=== PATIENT | female | born 2000 | race Caucasian/White ===

== ENCOUNTER 2022-01-31 08:43 | Inpatient (IN) | payer OTHER, SELFPAY ==
[2022-01-31] VITALS (11 sets, daily range): BP systolic 117–214; BP diastolic 66–117; PULSE 57–104; RESP 12–18; TEMP 36.1–36.8; O2SAT 96–100; BMI 65.0
[2022-01-31] MEDS: Lidocaine 1% Pres-Free 30 ML VIAL IJ (09:14)
[2022-01-31] MEDS: Oxytocin 10 UNITS/ML VIAL IM (09:14)
[2022-01-31] MEDS: Normal Saline Flush 10 ML SYR IVP (09:50)
--- NOTE | 2022-01-31 10:04 | ANES.PREOP_ITS ---
General Info Date of Service Date Performed: 01/31/22 Height: 5 ft 5.5 in Weight: 180 kg Body Mass Index (BMI): 65.0 Surgical Procedure: Operation Date: 01/31/22 10:10 Proposed Procedure Side Surgeon p Vaginal Laceration Repair Ginger Caruso DO Actual Procedure Side Surgeon p Vaginal Laceration Repair Left Ginger Caruso DO Meds Allergies and Home Medications Allergies Allergy/AdvReac Type Severity Reaction Status Date / Time clavulanic acid Allergy Unverified 01/31/22 08:49 [From Augmentin] amoxicillin [From Augmentin] AdvReac Intermediate Other (See Unverified 01/31/22 08:58 Comment) ciprofloxacin AdvReac Intermediate Other (See Unverified 01/31/22 08:58 Comment) Home Medication Medication Instructions Recorded levalbuterol tartrate 45 45 mcg inhalation PRN PRN 01/31/22 mcg/actuation aerosol inhaler (Xopenex HFA) ondansetron 4 mg disintegrating 4 mg PO DAILY PRN PRN Nausea And 01/31/22 tablet Vomiting Current Visit Medications: Current Medications Generic Name Dose Route Start Last Admin Trade Name Freq PRN Reason Stop Dose Admin Penicillin G Potassium 3,000, 50 mls @ 100 mls/hr 01/31/22 09:00 000 units/ Sodium Chloride IVPB Q4H ZEFERINO Sodium Chloride 500 mls @ 0 mls/hr 01/31/22 08:46 Saline 500ml Bag IV PRN PRN As Directed IV Miscellaneous Supplies 1 each 01/31/22 08:45 Iv Access IV DIRECTED ZEFERINO IV Miscellaneous Supplies 1 each 01/31/22 09:00 Iv Access IV DIRECTED ZEFERINO Sodium Chloride 0 ml 01/31/22 08:46 Normal Saline Flush 10 Ml Syr IVP PRN PRN PFSH Tobacco Smoking/Tobacco Use Status: Never Prental History History 1 Para 0 Hx # Term Pregnancies Multiple births Hx # Pregnancies Ectopic pregnancies AB induced Hx Number of Living Children AB spontaneous Vital Signs and Lab Results Vital Signs Most Recent Vital Signs in EMR: Most Recent Vital Signs Pulse BP 81 143/91 H 01/31/22 09:59 01/31/22 09:59 Lab Results Result Diagrams: 01/31/22 08:43 Blood Type / Crossmatch: Patient ABO/Rh Pending 01/31/22 Complete Blood Count: White Blood Count Pending 01/31/22 08:43 Red Blood Count Pending 01/31/22 08:43 Hemoglobin Pending 01/31/22 08:43 Hematocrit Pending 01/31/22 08:43 Platelet Count Pending 01/31/22 08:43 Complete Metabolic Panel: No Data to Display Liver Function Panel: No Data to Display Coagulation Panel: No Data to Display Cardiac Panel: No Data to Display Arterial Blood Gas: No Data to Display Venous Blood Gas: No Data to Display Pancreas Panel: No Data to Display Thyroid Panel: No Data to Display Infectious Disease: No Data to Display Blood Cultures: No Data to Display Toxicology Panel: No Data to Display Panel: No Data to Display Anesthesia Assessment and Plan Anesthesia History Personal History: No History of Anesthesia Complications Family History: No Family History of Anesthesia Complications Exercise Tolerance Exercise Tolerance: Metabolic Equivalents>4 Cardiac & Pulmonary Exam Cardiac Exam: Normal S1/S2 Heart Sounds Pulmonary Exam: Clear Bilateral Breath Sounds Implantable Cardiac Device Does patient have a Pacemaker or an ICD?: No Airway Exam Known Difficult Airway: No Mallampati Class: 2 Mouth Opening: Normal (> 3cm) Thyromental Distance: Greater than 3 cm Neck Range of Motion: Full ROM Neck Circumference: Normal Teeth Condition: Normal Dentition ASA Classification ASA Score: ASA 2 Emergency Case?: Yes NPO Status NPO Status: Full Stomach Status Status: Not Relevant due to Medical History Anesthesia Plan Resuscitation Status: Full Code Anesthesia Technique: General Anesthesia Airway Planned: Endotracheal Tube Monitors Used: Standard Monitors Preoperative Comments:: 21 yo female just delivered with large perineal lacer ation - to OR. Denies major medical history. Previous Anes: mac 3 grade 1, easy mask.
[2022-01-31 10:14] LABS: HCT 34.6 % (36.0-46.0); HGB 12.1 g/dL (11.2-15.7); MCH 31.8 pg (27.0-33.0); MCV 91 fL (80-95); MPV 10.8 fL (8.0-11.0); Platelet Count 222 10^3/uL (130-400); RDW-SD 40.2 fL
--- NOTE | 2022-01-31 10:14 | OBCE_ITS ---
Date of service: 01/31/22 Time of Service: 10:14 Assessment and Plan Assessment and plan (1) High vaginal laceration during delivery: Status: Acute Assessment and plan: Patient has a large vaginal sidewall laceration which will require repair in the operating room. Full informed consent was obtained from procedure. She will be taken to the operating suite shortly. Anesthesia in OR crew notified. All questions answered. History of Present Illness History of Present Illness Chief Complaint: Post delivery vaginal laceration Narrative: Patient is a 21-year-old now G1, P1 who had care with the [facility]. She presented to the office today and was noted to be completely dilated. She was transported via ambulance with physician in at [facility] to the center. Shortly thereafter, she delivered by normal spontaneous vaginal delivery without anesthesia a viable infant. Placenta delivered spontaneously per attending physician. I was called to evaluate the patient in the immediate post delivery. Due to persistent ongoing vaginal bleeding and suspicion of a laceration. On my examination, there is noted to be a small first-degree perineal laceration, however with palpation there was noted to be a deep right vaginal sidewall laceration. Patient has significant discomfort and due to this fact the recommendation would be to be taken the operating room for surgical repair. Risk benefits and alternatives were discussed in full informed consent was obtained. Consults Consult date: 01/31/22 Requesting physician: Morenita Haynes Review of Systems Narrative: Patient having significant vaginal and rectal discomfort due to her delivery and laceration. Otherwise no notable findings PFSH All Active Problems (Updated 01/31/22 @ 10:17 by Ginger Caruso DO) High vaginal laceration during delivery (Acute) Social History Smoking/Tobacco Use Status: Never Smoking risk assessment performed?: Yes History History 1 Para 0 Hx # Term Pregnancies Multiple births Hx # Pregnancies Ectopic pregnancies AB induced Hx Number of Living Children AB spontaneous Exam Resp Effort & Inspection: normal respiratory effort, no audible wheezes and no cough Cardio Rate: regular rate GI Inspection: normal to inspection General: other (As per description in HPI) Results Last Vital Signs Pulse 73 01/31/22 10:11 BP 143/67 H 01/31/22 10:11 Labs Result diagrams: 01/31/22 10:05
--- NOTE | 2022-01-31 10:27 | W.PM.OBHPL1 ---
Date of service: 01/31/22 Time of Service: 08:00 Assessment and Plan Assessment and plan (1) Active labor at term: Status: Acute Assessment and plan: who presented in active labor, /-1 on arrival to the hospital. GBS positive unfortunately unable to give antibiotics before delivery. Anticipate . (2) Positive GBS test: Status: Acute OB-HPI Labor/Delivery History of Present Illness Reason for Visit: Term Labor Chief Complaint: Uterine Contractions. TIANA Calculator Estimated Delivery Date Method Current WG Current Estimate 01/27/22 Ultrasound #1 40w 4d History of Present Expected Delivery Route/Plan Narrative: 21 yo who presented to the office this morning in active labor, found to be 9cm dilated with bulging membranes. Contractions every 2 minutes. FHR in the office was 120. Some bloody show but no ROM. Due to severe discomfort and possible imminent delivery, went via ambulance to hospital. Endorsing good movement. Fully dilated on arrival. history notable for GBS positive, did not receive antibiotics due to rapid delivery on presentation. Blood type A pos, antibodies neg. RI. 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 PFSH All Active Problems (Updated 01/31/22 @ 11:50 by Morenita Haynes) Active labor at term (Acute) Positive GBS test (Acute) High vaginal laceration during delivery (Acute) Social History Smoking/Tobacco Use Status: Never Smoking risk assessment performed?: Yes History History 1 Para 0 Hx # Term Pregnancies Multiple births Hx # Pregnancies Ectopic pregnancies AB induced Hx Number of Living Children AB spontaneous Meds Allergies and Home Medications Allergies Allergy/AdvReac Type Severity Reaction Status Date / Time clavulanic acid Allergy Unverified 01/31/22 08:49 [From Augmentin] amoxicillin [From Augmentin] AdvReac Intermediate Other (See Unverified 01/31/22 08:58 Comment) ciprofloxacin AdvReac Intermediate Other (See Unverified 01/31/22 08:58 Comment) Home Medications Medication Instructions Recorded Confirmed Type levalbuterol tartrate 45 45 mcg inhalation PRN PRN 01/31/22 History mcg/actuation aerosol inhaler (Xopenex HFA) ondansetron 4 mg disintegrating 4 mg PO DAILY PRN PRN Nausea And 06/16/22 History tablet Vomiting Exam Physical Exam Vital signs: Pulse BP 73 143/67 H 01/31/22 10:11 01/31/22 10:11 Vital Signs Reviewed: Yes Constitutional Constitutional: no acute distress Detailed Labor and Delivery Exam Dilation: 9 Effacement (%): 100 station: -1 Position: MARGARITA Cervix position: anterior Son Score: Cervical Points Exam 0 1 2 3 Dilation Closed 1-2cm 3-4 cm 5-6cm Effacement 0-30% 40-50% 60-70% 80% Consistency Firm Medium Soft Station -3 -2 -1,0 +1,+2 Position Posterior Mid Anterior Amniotic Membrane Status: Intact Contraction Frequency(min): 2 Fetus A Heart Rate Baseline: 120 Monitor Accelerations: Absent Monitor Decelerations: Early Variability: Moderate (6-25 BPM) Categories: Category I Respiratory Exam Respiratory Exam: Normal Cardiovascular Exam Cardiovascular Exam: Normal Abdominal Exam Abdominal Exam: Normal Results Results Group Beta Strep: Positive Blood Type: A+ Rubella Status: Immune Varicella Immunity: Not Tested Abnormal Lab Findings: Abnormal Labs 01/31/22 10:05 WBC 17.10 H RBC 3.80 L Hct 34.6 L Risk Assessment Risk for Shoulder Dystocia Increased Risk?: No Risk for Pre-Eclampsia Daily Dose ASA Indicated: No Risk for Post- Hemorrhage At Risk?: No Risks Reviewed Risks Reviewed Upon Admission: Yes
[2022-01-31] MEDS: Lactated Ringers 1,000 ML 30 ML IV (10:50)
[2022-01-31 11:20] LABS: Source Nasal/Nares
--- NOTE | 2022-01-31 11:23 | ROE_ITS ---
Date of service: 01/31/22 Time of Service: 11:23 Operative Note Operative Note DATE OF PROCEDURE: 01/31/22 PRE-OP DIAGNOSIS: Vaginal sidewall laceration POST-OP DIAGNOSIS: same (Laceration from the perineum, into the perirectal fossa. Vaginal mucosa intact) PROCEDURE: Repair of deep vaginal laceration SURGEON: Ginger Caruso ASSISTING SURGEON: Coco Goodwin EXPERIMENTAL DISPLAY BUILDER: Morenita Haynes ANESTHESIA TYPE: General LMA/ETT Refer to Anesthesia Record ESTIMATED BLOOD LOSS: 50 PATHOLOGY: none sent COMPLICATIONS: None Patient was transported to: PACU Patient's condition: stable Indications: Vaginal bleeding post normal spontaneous vaginal delivery with suspected vaginal sidewall laceration Findings: First-degree perineal laceration, first-degree left labial laceration, right labial laceration with extension into the perirectal fossa and avulsion of the vaginal mucosa Procedure Description: After full informed consent was obtained, patient was taken the operating suite with an IV running. She was placed in dorsal supine position and general anesthesia administered with ease. She was then placed in the modified dorsolithotomy position and prepped and draped in the usual sterile fashion in yellowfin stirrups. Shen catheter was inserted for continuous bladder drainage. On examination, systematically, cervix appears to be intact. Vaginal mucosa appears to be intact. There is a first-degree perineal laceration which is hemostatic and a first-degree left labial laceration which is also hemostatic. On the right-hand side there is a labial laceration which extends into the perirectal fossa and has evidence of avulsion of the vaginal mucosa on the right-hand side. With appropriate exposure and retraction, the deep space of the perirectal fossa was closed with 2-0 Monocryl suture. This area was noted to be hemostatic. Once the deep space tissues were closed, in a subcuticular fashion the tissue from the posterior fourchette extending up through the right labia minora was reapproximated. Upon inspection, there was no evidence of hematoma, or expansion of any pre-existing hematoma. Tissue was well reapproximated, and hemostasis had been achieved. Upon completion of the repair of the vaginal avulsion, the first-degree perineal and first-degree left labial lacerations were reapproximated as well. The patient was then returned to the dorsal supine position and awoke from anest hesia with ease. She was taken to recovery room in stable condition.
--- NOTE | 2022-01-31 11:51 | OBVDS_ITS ---
Date of service: 01/31/22 Time of Service: 09:30 OB Labor/ Delivery Information Baby A Delivery Delivery Method: Spontaneaous Presentation: Vertex Vertex Position: Left Occipital Anterior Cord Description-Baby A: 3 Vessels Amniotic Fluid: Meconium (thin) Estimated Blood Loss: 250 Delivery Outcome: Liveborn Infant Complications: none Note: 21 yo >1 who presented at 40w4d to the office in active labor. Transferred by ambulance to hospital given likelihood of imminent delivery as she was almost fully dilated on arrival to the office. heart rate 120-130 in the office. history notable for A pos, ab neg; GBS positive on urine culure in the third trimester; history of HSV1 pos genital culture, on acyclovir for the last 2 weeks. No current active lesions and no history of active lesions. Transfer to hospital went well, some bloody show, continued with strong contractions. Exam remained the same at 9/100/-1. On arrival to the hospital, she was placed on the monitor with Cat I FHT and contractions every 2 minutes. She quickly progressed to fully dilated +2 station with a bulging membrane and strong urge to push. AROM performed for thin meconium. She pushed efficiently to deliver a liveborn male through a loose nuchal cord. Shoulders delivered easily and spontaneously. FHT cat 1 throughout with early decelerations. Pitocin 10u IM was given after delivery of the infant. Fundus remained firm and placenta delivered spontaneously and found to be intact. Noted to have first degree bilateral labial lacerations and first degree perineal laceration that were hemostatic. However, there was ongoing mild bleeding and fundus was firm. Vagina explored and deep and high extension of the right labial laceration was found extending into the vagina. At this time, Dr. Caruso from OB was called who agreed with the assessment and preparations were made to transfer to the OR for repair under general anesthesia. See Dr. Caruso's consult note and operative report for further details. This provider did repair the left labial laceration and the perineal lacerations after the deep extension and the right labial lacerations were repaired by Dr. Caruso. EBL estimated at 250mL. Providers Doctor: Morenita Haynes [employer]: Morenita Haynes Nurse: King Colon Labor/Delivery Information Number of Babies in Womb: 1 Group Beta Strep: Positive Antibiotics Administered: No Rubella Status: Immune Blood Type: A+ Varicella Immunity: Not Tested Maternal Complications: Other (high vaginal laceration) Stages of Labor Onset of Labor Date: 01/31/22 Onset of Labor Time: 00:01 Complete Dilatation Date: 01/31/22 Complete Dilatation Time: 08:30 Labor - Stage 1 Duration: 0 minutes ROM Baby A: 01/31/22 ROM Baby A: 08:52 Infant Delivery Date-Baby A: 01/31/22 Infant Delivery Time-Baby A: 09:14 Labor Stage 2 Duration: 44 minutes Placenta Delivery Date-Baby A: 01/31/22 Placenta Delivery Time-Baby A: 09:26 Labor-Stage 3 Duration: 12 minutes Total Length of Labor-Baby A: 9 hours and 13 minutes Baby A Infant Gender: Male Gestational Status: Term (39-41.6 wks) weight: 3535 g Length-Baby A: 53.34 cm Head Circumference-Baby A: 35.56 cm Score-1 Minute Interval(Baby A) Heart Rate-1 minute: 100 BPM or Greater Respiratory Effort- 1 minute: Slow Respiration/Weak Cry Muscle Tone-1 minute: Active Movement Reflex Response-1 minute: Prompt Response Color-1 minute: Bluish Hands or Feet Score-5 Minute Interval(Baby A) Heart Rate- 5 minute: 100 BPM or Greater Respiratory Effort-5 minute: Spontaneous/Strong Cry Muscle Tone-5 minute: Active Movement Reflex Response-5 minute: Prompt Response Color-5 minute: Bluish Hands or Feet Interventions Repair of Laceration Type: Perineal (first) and Other (high vaginal laceration as extension of R labial laceration; L labial laceration 1st degree. See Operative note), Sponge Count Correct: Yes, Sharp Count Correct: Yes.
[2022-01-31 12:18] LABS: COVID-19 PCR Negative (Negative)
--- NOTE | 2022-01-31 12:47 | W.ANESPOSTOP ---
Postoperative Evaluation Date, Time and Location Date Performed: 01/31/22 Time Performed: 12:47 Patient Location: Obstetrics Vital Signs Most Recent Imported Vital Signs: Most Recent Vital Signs Temp Pulse Resp BP Pulse Ox 36.1 C L 99 H 16 128/85 96 01/31/22 11:49 01/31/22 11:49 01/31/22 11:49 01/31/22 11:49 01/31/22 11:49 Pain Score Most Recent Pain Score: Most Recent Pain Score Pain Level 0 01/31/22 11:49 Assessment Mental Status: Awake (Alert & Oriented to Patient Baseline) Airway and Respiratory Function: Patent airway with normal (patient baseline) respiratory exam Cardiovascular Function: Hemodynamically Stable Hydration Status: Adequately Hydrated Nausea & Vomiting: No Nausea or Vomiting Pain: Pain is tolerable per patient Peripheral Nerve Block: Patient did not receive a nerve block
[2022-01-31] MEDS: Ibuprofen 600 MG TAB PO (16:15)
[2022-01-31] MEDS: Acetaminophen 325 MG TAB 650 MG PO ×2 (17:21→23:42)
[2022-01-31] MEDS: Hamamelis Leaf/Glycerin 100 EACH BOX PR (17:23)
[2022-02-01 06:43] LABS: HCT 29.4 % (36.0-46.0); HGB 10.4 g/dL (11.2-15.7); MCH 32.5 pg (27.0-33.0); MCHC 35.4 % (32.0-36.0); MCV 92 fL (80-95); MPV 10.4 fL (8.0-11.0); Platelet Count 211 10^3/uL (130-400); RDW 12.3 % (11.7-14.6); RDW-SD 41.2 fL; WBC 16.19 10^3/uL (4.4-10.8)
--- NOTE | 2022-02-01 07:34 | W.PM.OBPNV1 ---
Date of service: 02/01/22 Time of Service: 07:34 Assessment and Plan Assessment and plan (1) Active labor at term: Status: Acute Assessment and plan: who presented in active labor, /-1 on arrival to the hospital. GBS positive unfortunately unable to give antibiotics before delivery. Anticipate . (2) Positive GBS test: Status: Acute Exam Physical Exam Vital signs: Temp Pulse Resp BP Pulse Ox 36.8 C 64 18 132/79 96 01/31/22 19:34 01/31/22 19:34 01/31/22 19:34 01/31/22 19:34 01/31/22 19:34 Narrative: Doing well. Slept some, doing all own self care. Initial effort off to good start. Expected dec in lochia, no abd pain, expected uterine cramps. No fever, dizzy. Perineal discomfort dec with ice and oral pain meds O: alert, smiling, comfortable abd - firm ut @ umb, non-tender Ext - tgrace sock lines A: Post Breatfeeding initiated No perineal infection or lac sequelae P: Routine PP care and support Expect d/c 02/02 when completes 48 hr observation for pos GBS without prophy abx. S. [place]re[place] Results Hemoglobin/Hematocrit: Hgb 10.4 g/dL (11.2-15.7) L 02/01/22 06:35 Hct 29.4 % (36.0-46.0) L 02/01/22 06:35 Abnormal Lab Findings: Abnormal Labs 01/31/22 02/01/22 10:05 06:35 WBC 17.10 H 16.19 H RBC 3.80 L 3.20 L Hgb 10.4 L Hct 34.6 L 29.4 L
[2022-02-01 08:15] VITALS: BP 124/77; PULSE 69; RESP 14; TEMP 36.8
[2022-02-01] MEDS: oxyCODONE 5 mg/Acetaminophen 325 mg TAB 1 TAB PO ×3 (08:36→21:19)
[2022-02-01 15:35] VITALS: BP 113/77; PULSE 67; RESP 16; TEMP 36.4; O2SAT 98
[2022-02-01] MEDS: Docusate Sodium 100 MG CAP PO (18:20)
[2022-02-01] MEDS: Acetaminophen 325 MG TAB 650 MG PO (21:22)
[2022-02-01] MEDS: Ibuprofen 600 MG TAB PO (21:23)
[2022-02-01 22:00] VITALS: BP 126/80; PULSE 78; RESP 18; TEMP 37.1
[2022-02-02 07:30] VITALS: BP 123/78; PULSE 85; RESP 16; TEMP 36.8; O2SAT 100
[2022-02-02] MEDS: Acetaminophen 325 MG TAB 650 MG PO (07:32)
[2022-02-02] MEDS: Ibuprofen 600 MG TAB PO (07:32)
[2022-02-02] MEDS: Docusate Sodium 100 MG CAP PO (07:33)
--- NOTE | 2022-02-02 09:04 | W.PM.OBDISCH ---
Date of service: 02/02/22 Time of Service: 09:04 DS: Diagnosis Discharge Diagnosis (1) Active labor at term: Status: Acute Asessment and Plan: Routine care/support. support Close f/u as outpatient (2) Positive GBS test: Status: Acute Discharge Plan Disposition Patient Disposition: HOME Condition: Good Discharge Details Reason For Visit: Term Labor Admit Date/Time: 01/31/22 08:43 Admit Provider: Morenita Haynes Attending Provider: Morenita Haynes Hospital Course Hospital Course: Candis delivered approx 20 min post arrival. Vigorous active male with APGARS 8/9 - BW 7lb 12 oz. Due to vaginal lac extension she required repair which was done in OR for ideal exposure and anesthesia support. She tolerated that procedure well. By d/c (48 hrs post delivery) she had showered and was doing all self/usual care. Eating well, voiding sx free and minimal perineal discomfort. Lochia had steadily decreased. was latching well with minimal wt loss. Home Meds and New Rx's Prescriptions: No Action levalbuterol tartrate [Xopenex HFA] 45 mcg/actuation Hfa Aerosol Inhaler 45 mcg INHALATION PRN PRN ondansetron 4 mg Tablet,Disintegrating 4 mg PO DAILY PRN PRN (Reason: Nausea And Vomiting) Discharge Instructions Additional Instructions: follow up planned monday 02/05 @ 10 am in [place] for both Candis and Rob. Activity:: Activity as Tolerated Equipment/Supplies:: No Equipment Needed Diet:: As Tolerated Discharge Orders Discharge Orders: Discharge Order (Routine); Ordered 02/02/22 Ordered By: Alfa Ivey OB:DS Summary Summary Vaginal Delivery Method: Spontaneaous Episiotomy Description: None Laceration Description: Perineal and Other Laceration Extension: First Degree Contraception Discussed Contraception Discussed: Yes, [place] Gender-Baby A: Male weight: 3535 g Status at Discharge Functional status at discharge: independent ambulation Overall status at discharge: patient is back to baseline Mental Status: mental status grossly normal Speech and Movement: speech and movement normal Mood: congruent mood Affect: normal affect Exam Physical Exam Vital signs: Temp Pulse Resp BP Pulse Ox 36.8 C 85 16 123/78 100 02/02/22 07:30 02/02/22 07:30 02/02/22 07:30 02/02/22 07:30 02/02/22 07:30 Narrative: Candis is spry, active and alert. Fundus firm at umb. No edema distally Nl pp breast - no redness or signs infection Fundal Exam Fundus: Below Umbilicus and Firm PFSH All Active Problems (Updated 01/31/22 @ 11:50 by Morenita Haynes) Active labor at term (Acute) Positive GBS test (Acute) High vaginal laceration during delivery (Acute) Social History Smoking/Tobacco Use Status: Never Smoking risk assessment performed?: Yes History History 1 Para 0 Hx # Term Pregnancies Multiple births Hx # Pregnancies Ectopic pregnancies AB induced Hx Number of Living Children AB spontaneous DS: Data Vitals/I&O Vitals and I&O: Vital Signs Temperature 36.8 C 02/02/22 07:30 Pulse 85 02/02/22 07:30 Pulse Rhythm Regular 02/02/22 07:30 Respiratory Rate 16 02/02/22 07:30 Blood Pressure 123/78 02/02/22 07:30 Blood Pressure Mean 93 02/02/22 07:30 Pulse Oximetry 100 02/02/22 07:30 Respiratory End-tidal CO2 24 01/31/22 11:34 Oxygen Delivery Method Room Air 01/31/22 11:49 Oxygen Flow Rate 10 01/31/22 11:39 Pain Level 3 02/02/22 07:32
== END 2022-02-02 11:50 | disposition home or self-care (01) | DRG 806 ==
PROVIDERS: Nurse Anesthetist, Certified Registered; Obstetrics & Gynecology; Admitting Provider Family Medicine; Visit Provider Family Medicine
PROC: 0KQM0ZZ Repair Perineum Muscle, Open Approach (ICD-10-PCS; CPT 59841; principal; 2022-01-31 10:00)
DX: O99.824 Streptococcus B carrier state complicating childbirth (principal); O98.32 Other infections with a predominantly sexual mode of transmission complicating childbirth; Z37.0 Single live birth; O71.4 Obstetric high vaginal laceration alone; A60.09 Herpesviral infection of other urogenital tract; Z3A.40 40 weeks gestation of pregnancy; O77.0 Labor and delivery complicated by meconium in amniotic fluid; O69.81X0 Labor and delivery complicated by cord around neck, without compression, not applicable or unspecified; O70.0 First degree perineal laceration during delivery
CPT/HCPCS: 59300; 36415; 85027; 86850; 86900; 86901; 87635; J1100; J2250; J2405; J2590; J2704; J3490

== ENCOUNTER 2024-02-16 23:08 | Observation (INO) | payer OTHER, SELFPAY ==
[2024-02-16] VITALS (17 sets, daily range): BP systolic 115; BP diastolic 68; PULSE 67–88; TEMP 36.9; O2SAT 98–100
[2024-02-16] MEDS: Lactated Ringers 500 ML 1000 ML IV (21:00)
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
[2024-02-16 23:25] LABS: Abs Immature Grans 0.05 10^3/uL (0.0-0.06); Absolute Basophil Count 0.03 10^3/uL (0.0-0.2); Absolute Eosinophil Count 0.13 10^3/uL (0.0-0.7); Absolute Lymphocyte Count 1.97 10^3/uL (1.2-3.4); Absolute Monocyte Count 0.64 10^3/uL (0.1-0.8); Basophils % 0.3 %; Eosinophils % 1.1 %; HCT 32.3 % (36.0-46.0); HGB 11.1 g/dL (11.2-15.7); Immature Grans % 0.4 %; Lymphocytes % 17.3 %; MCH 31.4 pg (27.0-33.0); MCHC 34.4 % (32.0-36.0); MCV 92 fL (80-95); MPV 9.3 fL (8.0-11.0); Monocytes % 5.6 %; Neutrophils % 75.3 %; Platelet Count 233 10^3/uL (130-400); RBC 3.53 10^6/uL (3.93-5.22); RDW 13.2 % (11.7-14.6); RDW-SD 42.4 fL; WBC 11.37 10^3/uL (4.4-10.8)
[2024-02-16 23:26] LABS: Absolute Neutrophil Count 8.56 10^3/uL (1.2-6.7)
--- NOTE | 2024-02-17 00:06 | NUR.NOTE ---
Nursing Note: Melissa Wooten MD in pt room talking to patient about the plan. Plan is to monitor for a few hours then recheck cervix and MD will sleep in house.Pt is on left side, very active fetus. MD states she is more worried about picking up the cxs than FHT's as FHT's have looked good.
[2024-02-17] MEDS: Lactated Ringers 500 ML 200 ML IV (00:13)
[2024-02-17 00:51] VITALS: BP 106/56; PULSE 62
--- NOTE | 2024-02-17 02:28 | W.PM.OBDISCH ---
Date of service: 02/17/24 Time of Service: 02:28 DS: Diagnosis Discharge Diagnosis (1) : Status: Acute Asessment and Plan: Sully was monitored over 4 hours, FHT category 1 throughout. Contractions stopped by 01:00, after 1500cc NS by IV. Discussed adequate hydration, and avoiding risky activities. She will call clinic tomorrow to check in, and call if contractions return. Otherwise, DC home. (2) Abdominal trauma: Status: Acute Discharge Plan Disposition Patient Disposition: Home Condition: Good Discharge Details Reason For Visit: NST Admit Date/Time: 02/16/24 23:08 Admit Provider: Kumar Vargas Attending Provider: Kumar Vargas Primary Care Provider: Unknown,Unknown Home Meds and New Rx's Prescriptions: No Action levalbuterol tartrate [Xopenex HFA] 45 mcg/actuation Hfa Aerosol Inhaler 45 mcg INHALATION PRN PRN ondansetron 4 mg Tablet,Disintegrating 4 mg PO DAILY PRN PRN (Reason: Nausea And Vomiting) Discharge Instructions Activity:: Activity as Tolerated Equipment/Supplies:: No Equipment Needed Diet:: As Tolerated Discharge Orders Discharge Orders: Discharge Order (Routine); Ordered 02/17/24 Ordered By: Kumar Vargas OB:DS Summary Contraception Discussed Contraception Discussed: No, Status at Discharge Functional status at discharge: independent ambulation Overall status at discharge: patient is back to baseline Mental Status: mental status grossly normal Speech and Movement: speech and movement normal Mood: congruent mood Affect: normal affect Time Spent with Patient providing and/or coordinating discharge services: Less than 30 minutes Quality:SDOH Health Related Social Needs: No Data to Display Hospital Course see above Exam Physical Exam Vital signs: Pulse BP Pulse Ox 62 106/56 L 99 02/17/24 00:51 02/17/24 00:51 02/16/24 23:26 Vital Signs Reviewed: Yes Constitutional Constitutional: no acute distress Fundal Exam Comment: non tender PFSH All Active Problems (Updated 02/16/24 @ 23:22 by Kumar Vargas) Abdominal trauma (Acute) (Acute) Social History Smoking/Tobacco Use Status: Never Smoking risk assessment performed?: Yes History History 2 Para 1 Hx # Term Pregnancies 1 Multiple births 0 Hx # Pregnancies 0 Ectopic pregnancies 0 AB induced 0 Hx Number of Living Children 1 AB spontaneous 0 DS: Data Vitals/I&O Vitals and I&O: Vital Signs Temperature 36.9 C 02/16/24 21:36 Pulse 62 02/17/24 00:51 Pulse 88 02/16/24 21:36 Pulse Rhythm Regular 02/16/24 23:17 Blood Pressure 106/56 L 02/17/24 00:51 Blood Pressure 115/68 02/16/24 21:36 Pulse Oximetry 99 02/16/24 23:26 Oxygen Delivery Method Room Air 02/16/24 23:17 Oxygen Flow Rate 0 02/16/24 23:17 Intake & Output 02/16/24 02/16/24 02/17/24 11:59 23:59 11:59 Intake Total 500 / 500 Output Total 550 / 550 Balance -50 / -50 Weight 80.739 kg Intake: IV 500 / 500 Output: Urine 550 / 550 Other: Urine Color Dark Meli Data Completed and Pending Labs on day of discharge: Labs from last 24 hours 02/16/24 23:10 WBC 11.37 H RBC 3.53 L Hgb 11.1 L Hct 32.3 L MCV 92 MCH 31.4 MCHC 34.4 RDW 13.2 Plt Count 233 MPV 9.3 Immature Gran % 0.4 Neutrophils % 75.3 Lymphocytes % 17.3 Monocytes % 5.6 Eosinophils % 1.1 Basophils % 0.3 Nucleated RBC % 0.0 Absolute Neutrophils 8.56 H Absolute Lymphocytes 1.97 Absolute Monocytes 0.64 Absolute Eosinophils 0.13 Absolute Basophils 0.03 Volume Blood Pending Kleihauer-Betke F Hgb Pending Doses of RhIG Required Pending ABO/Rh A Positive Antibody Screen NEGATIVE
--- NOTE | 2024-02-17 22:04 | NUR.NOTE ---
Nursing Note: 0100 Pt states she isnt feeling any contractions but she isn't sleepy yes. Category I strip persists
--- NOTE | 2024-02-17 22:05 | NUR.NOTE ---
Nursing Note:0220, LR MD Patel at bedside. Educating patient and verbalized discharge order. Plan is for patient to check in with their office in the morning. Pt educated regarding signs of when to call MD.
== END 2024-02-17 02:40 | disposition home or self-care (01) ==
LOC: BCD 23:20 → OBS 23:20
PROVIDERS: Admitting Provider Family Medicine; Visit Provider Family Medicine
DX: O9A.213 Injury, poisoning and certain other consequences of external causes complicating pregnancy, third trimester (principal); S39.81XA Other specified injuries of abdomen, initial encounter; O26.893 Other specified pregnancy related conditions, third trimester; Z3A.30 30 weeks gestation of pregnancy; O47.03 False labor before 37 completed weeks of gestation, third trimester; E86.0 Dehydration; V86.59XA Driver of other special all-terrain or other off-road motor vehicle injured in nontraffic accident, initial encounter
CPT/HCPCS: 00123; 36415; 86850; 86900; 86901; 96360; 59025; 85025; 85460; G0378

== ENCOUNTER 2024-04-21 07:21 | Outpatient (CLI) | payer MEDICAID, SELFPAY ==
[2024-04-21 08:25] VITALS: BP 125/81; PULSE 83
[2024-04-21 08:44] VITALS: BP 125/81; PULSE 83; TEMP 36.6
[2024-04-21 09:00] VITALS: BP 125/81; PULSE 83; RESP 16; TEMP 36.6; O2SAT 100
== END 2024-04-21 09:40 | disposition home or self-care (01) ==
LOC: BCD 07:23 → OBS 07:29
PROVIDERS: Visit Provider Family Medicine
DX: O47.9 False labor, unspecified (principal)
CPT/HCPCS: 59025

== ENCOUNTER 2024-04-23 01:49 | Inpatient (IN) | payer MEDICAID, SELFPAY ==
[2024-04-23] VITALS (84 sets, daily range): BP systolic 93–131; BP diastolic 53–83; PULSE 54–103; RESP 16–20; TEMP 36.8; O2SAT 95–100; BMI 32.4
--- NOTE | 2024-04-23 01:18 | HPE_ITS ---
Date of service: 04/23/24 Time of Service: 01:18 Assessment and Plan Assessment and plan (1) : Status: Acute Assessment and plan: Term , evaluate for labor. Monitor for contractions and cervical change. Patient has a history of herpes simplex virus. Previous delivery was fairly rapid with most of her labor at home, presenting to the hospital completely dilated. She did have a significant vaginal laceration to the sulcus on the right side which was repaired in the OR. Qualifiers: Weeks of gestation: 30 weeks Qualified Code(s): Z3A.30 - 30 weeks gestation of OB-HPI Labor/Delivery History of Present Illness Reason for Visit: Rule out labor Chief Complaint: Uterine Contractions. TIANA Calculator Estimated Delivery Date Method Current WG Current Estimate 04/20/24 Ultrasound #1 40w 3d Other Estimates 04/19/24 LMP (Certain) 40w 4d Comments: Patient is a 24-year-old 2 para 1. She is a patient of the [facility] group for which we are covering. She called me earlier tonight with complaints of increasing contractions and crampiness. She was seen in the office today by Dr. Arauz and had her membranes stripped. She reports good activity, no loss of fluid. She does report the loss of her mucous plug and some bloody show. She was sent to the center for evaluation History of Present Expected Delivery Route/Plan Specific Issues/Plan none Review of Systems All systems reviewed & are unremarkable except as noted in HPI and below Constitutional Constitutional: Reports as per HPI and Reports system reviewed and no additional complaints, except as documented Cardiovascular Cardiovascular: Reports as per HPI and Reports system reviewed and no additional complaints, except as documented Respiratory Respiratory: Reports system reviewed and no additional complaints, except as documented Gastrointestinal Gastrointestinal: Reports system reviewed and no additional complaints, except as documented Genitourinary Genitourinary: Reports as per HPI PFSH All Active Problems (Acute) Medical History History of positive PCR for herpes simplex virus type 1 (HSV-1) DNA (normal spontaneous vaginal delivery) Precipitous vaginal delivery 01/31/2022 with subsequent vaginal laceration and significant repair Social History Smoking/Tobacco Use Status: Never Smoking risk assessment performed?: Yes Housing: house History History 2 Para 1 Hx # Term Pregnancies 1 Multiple births 0 Hx # Pregnancies 0 Ectopic pregnancies 0 AB induced 0 Hx Number of Living Children 1 AB spontaneous 0 Past Pregnancies Del. Date GA/Weeks # Preg Succ Route Wgt Sex Labor Lgth Anesth esia Location Prov Complic Unknown 40 No Yes vaginal 7 lb 12 oz Male 6 hours, labo r at home, complete on presentation to [facility] other Delivery Date: Last Updated by: Ginger Caruso DO deep sulcus tear, repaired in OR Meds Allergies and Home Medications Allergies Allergy/AdvReac Type Severity Reaction Status Date / Time clavulanic acid (From Allergy Unverified 01/31/22 08:49 Augmentin) amoxicillin (From Augmentin) AdvReac Intermediate Other (See Unverified 01/31/22 08:58 Comment) ciprofloxacin AdvReac Intermediate Other (See Unverified 01/31/22 08:58 Comment) Home Medications ?Medication ?Instructions ?Recorded ?Confirmed ?Type levalbuterol tartrate 45 45 mcg inhalation PRN PRN 01/31/22 02/16/24 History mcg/actuation aerosol inhaler (Xopenex HFA) ondansetron 4 mg disintegrating 4 mg PO DAILY PRN PRN Nausea And 01/31/22 02/16/24 History tablet Vomiting Exam Detailed Labor and Delivery Exam Dilation: 4 Effacement (%): 70 station: -2 Position: OA Cervix position: mid Consistency: soft Barton Score: Cervical Points Exam 0 1 2 3 Dilation Closed 1-2cm 3-4 cm 5-6cm Effacement 0-30% 40-50% 60-70% 80% Consistency Firm Medium Soft Station -3 -2 -1,0 +1,+2 Position Posterior Mid Anterior BARTON Score(Cervical Ripeness Score): 8 Amniotic Membrane Status: Intact Contraction Frequency(min): 2-4 Contraction Duration(sec): 60 Contraction Intensity: Moderate/Strong Fetus A Heart Rate Baseline: 120 Monitor Accelerations: 15 X 15 Monitor Decelerations: Variable Variability: Moderate (6-25 BPM) Presentation: Cephalic Categories: Category I Est. Weight: 7 lb HEENT Exam HEENT Exam: Normal Respiratory Exam Respiratory Exam: Normal Cardiovascular Exam Cardiovascular Exam: Normal Abdominal Exam Abdominal Exam: Normal Extremities Exam Extremities Exam: Normal Back/Spine/Pelvis Exam Pelvis Adequate: Yes Skin Exam Skin Exam: Normal Neurological Exam Neurological Exam: Normal Psychiatric Exam Psychiatric Exam: Normal Results Results Group Beta Strep: Negative Blood Type: A+ Rubella Status: Immune Lab Results: RPR is nonreactive group B strep is negative. Hepatitis B surface antigen negative HIV nonreactive antibody screen was negative patient does have a history of HSV. No prodrome or symptoms Risk Assessment Risk for Shoulder Dystocia Increased Risk?: No Date/Initial: 04/23/2024 Risk for Post- Hemorrhage At Risk?: No Counseled re: Active Management: Yes Date/Initials: 04/23/2024 Risks Reviewed Risks Reviewed Upon Admission: Yes
[2024-04-23] MEDS: Normal Saline Flush 10 ML SYR IVP ×2 (02:59→09:14)
[2024-04-23 03:04] LABS: HCT 36.6 % (36.0-46.0); HGB 12.6 g/dL (11.2-15.7); MCH 30.9 pg (27.0-33.0); MCHC 34.4 % (32.0-36.0); MCV 90 fL (80-95); MPV 10.1 fL (8.0-11.0); Platelet Count 248 10^3/uL (130-400); RBC 4.08 10^6/uL (3.93-5.22); RDW 12.7 % (11.7-14.6); RDW-SD 41.4 fL; WBC 13.61 10^3/uL (4.4-10.8)
--- NOTE | 2024-04-23 03:40 | W.PM.OBNL1 ---
Date of service: 04/23/24 Time of Service: 03:41 Pelvic Exam Effacement (%): 90 station: -1 Cervix Position: mid Consistency: soft Contractions Contraction Frequency(min): 3 Contraction Duration(sec): 60 Intensity: Strong Fetus A Heart Rate Baseline: 120 Assessment and Plan Assessment and plan (1) Normal labor: Status: Acute Assessment and plan: Patient laboring appropriately. Good cervical change. Regular painful contractions. Desires pain control. Anesthesia paged for epidural placement. Anticipate vaginal Objective Abnormal lab results 04/23/24 Range/Units 02:45 WBC 13.61 H (4.4-10.8) 10^3/uL Temp Pulse Resp BP Pulse Ox 98.2 F 63 17 131/83 99 04/23/24 01:59 04/23/24 01:59 04/23/24 01:59 04/23/24 01:59 04/23/24 01:59 Laboratory Results WBC 13.61 10^3/uL (4.4-10.8) H 04/23/24 02:45 RBC 4.08 10^6/uL (3.93-5.22) 04/23/24 02:45 Hgb 12.6 g/dL (11.2-15.7) 04/23/24 02:45 Hct 36.6 % (36.0-46.0) 04/23/24 02:45 MCV 90 fL (80-95) 04/23/24 02:45 MCH 30.9 pg (27.0-33.0) 04/23/24 02:45 MCHC 34.4 % (32.0-36.0) 04/23/24 02:45 RDW 12.7 % (11.7-14.6) 04/23/24 02:45 Plt Count 248 10^3/uL (130-400) 04/23/24 02:45 MPV 10.1 fL (8.0-11.0) 04/23/24 02:45 Subjective Interval history since last seen: Patient seen and examined. Feeling more pressure or discomfort. She would like pain relief. We discussed options and she has chosen an epidural. Anesthesia notified Results Hemoglobin/Hematocrit: Hgb 12.6 g/dL (11.2-15.7) 04/23/24 02:45 Hct 36.6 % (36.0-46.0) 04/23/24 02:45 Abnormal Lab Findings: Abnormal Labs 04/23/24 02:45 WBC 13.61 H
--- NOTE | 2024-04-23 04:08 | ANES.PREOP_ITS ---
General Info Date of Service Date Performed: 04/23/24 Height: 5 ft 4 in Weight: 85.729 kg Body Mass Index (BMI): 32.4 Meds Allergies and Home Medications Allergies Allergy/AdvReac Type Severity Reaction Status Date / Time clavulanic acid (From Allergy Other (See Unverified 04/23/24 03:58 Augmentin) Comment) amoxicillin (From Augmentin) AdvReac Intermediate Other (See Unverified 04/23/24 03:58 Comment) ciprofloxacin AdvReac Intermediate Other (See Unverified 04/23/24 03:58 Comment) Home Medication ?Medication ?Instructions ?Recorded levalbuterol tartrate 45 45 mcg inhalation PRN PRN 01/31/22 mcg/actuation aerosol inhaler (Xopenex HFA) ondansetron 4 mg disintegrating 4 mg PO DAILY PRN PRN Nausea And 01/31/22 tablet Vomiting Current Visit Medications: Current Medications Generic Name Dose Route Start Last Admin Trade Name Freq PRN Reason Stop Dose Admin Fentanyl/Ropivacaine 200 ml 04/23/24 04:00 Fentanyl/Ropivacaine 2 Mcg/Ml And 0.1% 200 Ml Cadd Cassette EP DIRECTED [facility] Ringer's Solution 500 mls @ 500 mls/hr 04/23/24 03:49 IV 04/23/24 04:48 BOLUS ONE IV Miscellaneous Supplies 1 each 04/23/24 02:00 Iv Access IV DIRECTED [facility] Sodium Chloride 0 ml 04/23/24 01:49 04/23/24 02:59 Normal Saline Flush 10 Ml Syr IVP 10 ml PRN PRN Administration Sodium Chloride 0 ml 04/23/24 08:30 Normal Saline Flush 10 Ml Syr IVP BID ZEFERINO Sodium Chloride 0 ml 04/23/24 01:49 Normal Saline 10 Ml Vial IJ DIRECTED PRN PFSH Active Problems Active Problems: Problem Status Onset Code Normal labor Acute O80, Z37.9 Acute Z34.90 Medical History Medical History History of positive PCR for herpes simplex virus type 1 (HSV-1) DNA (normal spontaneous vaginal delivery) Precipitous vaginal delivery 01/31/2022 with subsequent vaginal laceration and significant repair Tobacco Smoking/Tobacco Use Status: Never Alcohol Alcohol Intake: never Substance Use Substance use: Never Prental History History 2 2 Para 1 Hx # Term Pregnancies 1 Multiple births 0 Hx # Pregnancies 0 Ectopic pregnancies 0 AB induced 0 Hx Number of Living Children 1 AB spontaneous 0 Past Pregnancies Del. Date GA/Weeks # Preg Succ Route Wgt Sex Labor Lgth Anesth esia Location Prov Complic Unknown 40 No Yes vaginal 3515.341 g Male 6 hours, labo r at home, complete on presentation to [facility] other Delivery Date: Last Updated by: Ginger Caruso DO deep sulcus tear, repaired in OR Vital Signs and Lab Results Vital Signs Most Recent Vital Signs in EMR: Most Recent Vital Signs Temp Pulse Resp BP Pulse Ox 36.8 C 63 17 131/83 99 04/23/24 01:59 04/23/24 01:59 04/23/24 01:59 04/23/24 01:59 04/23/24 01:59 Lab Results 04/23/24 02:45 Blood Type / Crossmatch: 2 Antibody Screen NEGATIVE 04/23/24 Complete Blood Count: 2 White Blood Count 13.61 10^3/uL (4.4-10.8) H 04/23/24 02:45 Red Blood Count 4.08 10^6/uL (3.93-5.22) 04/23/24 02:45 Hemoglobin 12.6 g/dL (11.2-15.7) 04/23/24 02:45 Hematocrit 36.6 % (36.0-46.0) 04/23/24 02:45 Platelet Count 248 10^3/uL (130-400) 04/23/24 02:45 Complete Metabolic Panel: 2 No Data to Display Liver Function Panel: 2 No Data to Display Coagulation Panel: 2 No Data to Display Cardiac Panel: 2 No Data to Display Arterial Blood Gas: 2 No Data to Display Venous Blood Gas: 2 No Data to Display Pancreas Panel: 2 No Data to Display Thyroid Panel: 2 No Data to Display Infectious Disease: 2 No Data to Display Blood Cultures: 2 No Data to Display Toxicology Panel: 2 No Data to Display Panel: 2 No Data to Display Anesthesia Assessment and Plan Anesthesia History Personal History: No History of Anesthesia Complications Family History: No Family History of Anesthesia Complications Exercise Tolerance Exercise Tolerance: Metabolic Equivalents>4 Cardiac & Pulmonary Exam Cardiac Exam: Normal S1/S2 Heart Sounds Pulmonary Exam: Clear Bilateral Breath Sounds Implantable Cardiac Device Does patient have a Pacemaker or an ICD?: No Airway Exam Known Difficult Airway: No Mallampati Class: 2 Mouth Opening: Normal (> 3cm) Thyromental Distance: Greater than 3 cm Neck Range of Motion: Full ROM Neck Circumference: Normal Teeth Condition: Normal Dentition ASA Classification ASA Score: ASA 2 Emergency Case?: No NPO Status NPO Status: Full Stomach Status Status: Confirmed Anesthesia Plan Resuscitation Status: Full Code Anesthesia Technique: Epidural Anesthesia Airway Planned: Natural Airway Pain Management: Epidural Monitors Used: Standard Monitors
[2024-04-23] MEDS: FentaNYL/ROPIvacaine 2 mcg/ml and 0.1% 200 ML CADD Cassette EP (04:52)
--- NOTE | 2024-04-23 05:11 | ANES.NEUR_ITS ---
Epidural/Spinal Catheter Date Performed: 04/23/24 Procedure Start: 04:28 Procedure Stop: 05:05 Requesting Provider: Shady Procedure Location: Obstetrics Reason Performed: Labor Epidural Standard Monitors Applied: Blood Pressure, SpO2 and See EMR for corresponding vital signs Patient Position: Sitting Sedation Given (Indicate Dose Given): No Sedation given Patient Mental Status: Awake Sterility: Hand Hygiene, Surgical Cap, Surgical Mask, Sterile Gloves, Sterile Drape/Sheet and Chlorhexidine Procedure Location: L3-L4 Interspace Epidural Needle: Tuohy 18 Gauge Needle Length: 4 Inch Needle Approach: Midline Epidural Procedure: Skin Prepped, Sterile Drape Placed, 1% Lidocaine to skin and subcutaneous tissue with 25G needle, Tuohy Needle placed, MOOSE to Saline Used, Epidural Catheter Placed, Negative Heme, Negative CSF Flow and Tuohy Needle Removed Catheter Placed?: Catheter Placed Test Dose (Indicate Dose Given): 3ml 1.5% Lidocaine with 1:200K Epinephrine Given Loss of Resistance Depth (cm): 7 Catheter depth at skin (cm): 14 Dressing: Sorbaview Dressing Placed, Mastisol Used and Dressing reinforced with Tape Epidural Provider Bolus (Indicate Dose Given): Total bolus dose given in 3-5 ml divided doses and Total Ropivacaine 0.1% with Fentanyl 2mcg/ml Given from pump. (ml) Dose:: 11mL Additives (Indicate Dose Given ): None Infusion Medication: Medication Infusion Began Medication Infusion: Ropivacaine 0.1% with Fentanyl 2mcg/ml Maintenance Infusion Rate (ml/hour): 10 PCEA Bolus Dose (ml): 5 Block Level: T10 (Left side T12) Paresthesia: None Ultrasound: Not Used Number of Attempts (See previous attempts in note section): 2 Procedure Tolerated: No Complications Procedure Outcome: Successful Procedure Comment:: After palpation of patient's back, noted to have scoliosis with right-sided cur ve with approximately 2cm deviation. Patient's partner present in room. Performed By: Genoveva Stover
--- NOTE | 2024-04-23 07:31 | W.OBDELIVERY ---
Date of service: 04/23/24 Time of Service: 07:31 OB Labor/ Delivery Information Baby A Delivery Delivery Method: Spontaneaous Presentation: Cephalic Vertex Position: Right Occipital Anterior Cord Description-Baby A: 3 Vessels Amniotic Fluid: Clear Estimated Blood Loss: 100 Delivery Outcome: Liveborn Note: Patient presented to the center in the early hours of the morning after having contractions that were irregular throughout the day after her visit. On presentation, she was noted to be 4 cm with a bulging bag of water. She was leila approximately every 2 to 3 minutes. She had progress in her labor and was dilated to 6 cm, requesting pain control. She had an epidural placed for analgesia during labor. Epidural had good effect. She went on to be completely dilated in the vertex occiput anterior position with a bulging bag of water that broke spontaneously upon my check. She pushed the vertex over an intact perineum with approximately 3 maternal pushes. Shoulders followed with ease. There was no evidence of nuchal cord. Three-vessel cord was noted and clamped and cut after delayed cord clamping. Patient received Pitocin intravenously for uterine tonicity. She had spontaneous delivery of an intact placenta. There was no vaginal, vulvar, or cervical lacerations. Qualitative blood loss 100 mL. Delivery of viable male named Arthur. Both mom and baby are in stable condition after delivery bonding appropriately. Providers Doctor: Ginger Caruso Nurse: Ayana Mai Nurse: Jeaneth Huang Labor/Delivery Information Group Beta Strep: Negative Rubella Status: Immune Blood Type: A+ Varicella Immunity: Not Tested Shoulder Dystocia: No Stages of Labor ROM Baby A: 04/23/24 ROM Baby A: 06:34 Delivery Date-Baby A: 04/23/24 Delivery Time-Baby A: 06:54 Placenta Delivery Date-Baby A: 04/23/24 Placenta Delivery Time-Baby A: 07:02 Labor-Stage 3 Duration: 8 minutes Placenta Status: Delivered Baby A Infant Gender: Male Gestational Status: Term (39-41.6 wks) Gestational Age in Weeks/Days: 40 Weeks and 4 Days Length-Baby A: 21 in Score-1 Minute Interval(Baby A) Heart Rate-1 minute: 100 BPM or Greater Respiratory Effort- 1 minute: Spontaneous/Strong Cry Muscle Tone-1 minute: Active Movement Reflex Response-1 minute: Minimal Response Color-1 minute: Bluish Hands or Feet Total Score-1 minute: 8 Score-5 Minute Interval(Baby A) Heart Rate- 5 minute: 100 BPM or Greater Respiratory Effort-5 minute: Spontaneous/Strong Cry Muscle Tone-5 minute: Active Movement Reflex Response-5 minute: Prompt Response Color-5 minute: Bluish Hands or Feet Total Score- 5 minute: 9
[2024-04-23] MEDS: Oxytocin/Normal Saline 30 UNIT/500 ML BAG 95 UNITS IV (07:35)
[2024-04-23] MEDS: Dibucaine 1% 28 GM TUBE TP (08:00)
[2024-04-23] MEDS: Ibuprofen 600 MG TAB PO ×2 (08:00→21:25)
[2024-04-23] MEDS: Hamamelis Leaf/Glycerin 100 EACH BOX PR (08:00)
[2024-04-23] MEDS: Acetaminophen 325 MG TAB 650 MG PO ×2 (08:00→21:25)
--- NOTE | 2024-04-23 14:11 | W.ANESPOSTOP ---
Postoperative Evaluation Date, Time and Location Date Performed: 04/23/24 Time Performed: 14:11 Patient Location: Obstetrics Vital Signs Most Recent Imported Vital Signs: Most Recent Vital Signs Temp Pulse Resp BP Pulse Ox 36.8 C 65 18 117/68 97 04/23/24 11:00 04/23/24 11:00 04/23/24 11:00 04/23/24 11:00 04/23/24 11:00 Assessment Mental Status: Awake (Alert & Oriented to Patient Baseline) Airway and Respiratory Function: Patent airway with normal (patient baseline) respiratory exam Cardiovascular Function: Hemodynamically Stable Hydration Status: Adequately Hydrated Nausea & Vomiting: No Nausea or Vomiting Pain: Pain is tolerable per patient Peripheral Nerve Block: Patient did not receive a nerve block
--- NOTE | 2024-04-24 02:46 | OBPPV_ITS ---
Date of service: 04/24/24 Time of Service: 02:46 Assessment and Plan Assessment and plan (1) Routine follow-up: Status: Acute Assessment and plan: Pt is HD#1 s/p NVD of male . She is doing well and desires discharge at 24hrs. She has minimal bleeding and pain is well controlled. She says breast feeding is going ok though has some nipple soreness. Baby had his circ yesterday and is doing well. She has an appt scheduled friday at [facility] and plans to discuss contraception then. She thinks she would like the minipill. We reviewed discharge and reasons to call. All questions answered. Exam Physical Exam Vital signs: Temp Pulse Resp BP Pulse Ox 98.2 F 67 18 115/68 98 04/23/24 21:28 04/23/24 21:28 04/23/24 21:28 04/23/24 21:28 04/23/24 21:28 Vital Signs Reviewed: Yes Constitutional Constitutional: no acute distress and cooperative Detailed HEENT Exam Head: Present normocephalic and atraumatic Respiratory Exam Respiratory Exam: Normal Abdominal Exam Abdomen: Tender (mildly) Fundal Exam Fundus: Below Umbilicus and Firm Extremities Exam Extremity Exam: negative Calf Tenderness or Edema Detailed Neurological Exam Neurological: Present alert, oriented X3 and CN II-XII intact Results Hemoglobin/Hematocrit: Hgb 12.6 g/dL (11.2-15.7) 04/23/24 02:45 Hct 36.6 % (36.0-46.0) 04/23/24 02:45 Abnormal Lab Findings: Abnormal Labs 04/23/24 02:45 WBC 13.61 H
--- NOTE | 2024-04-24 02:51 | W.PM.OBDISCH ---
Date of service: 04/24/24 Time of Service: 02:51 DS: Diagnosis Discharge Diagnosis (1) Routine follow-up: Status: Acute Discharge Plan Disposition Patient Disposition: Home Condition: Good Discharge Details Reason For Visit: Labor Admit Date/Time: 04/23/24 01:49 Admit Provider: Ginger Caruso Attending Provider: Ginger Caruso Primary Care Provider: Unknown,Unknown Hospital Course Hospital Course: Pt was admitted in active labor and had an uncomplicated vaginal delivery and course. Home Meds and New Rx's Prescriptions: No Action levalbuterol tartrate [Xopenex HFA] 45 mcg/actuation Hfa Aerosol Inhaler 45 mcg INHALATION PRN PRN ondansetron 4 mg Tablet,Disintegrating 4 mg PO DAILY PRN PRN (Reason: Nausea And Vomiting) Discharge Instructions Activity:: Activity as Tolerated Equipment/Supplies:: No Equipment Needed Diet:: As Tolerated Discharge Orders Discharge Orders: Discharge Order (Routine); Ordered 04/24/24 Ordered By: Cynthia Tong OB:DS Summary Summary Vaginal Delivery Method: Spontaneaous Episiotomy Description: None Laceration Description: None Contraception Discussed Contraception Discussed: Yes Contraceptive Plan: Control Pill/Patch, [place] Infant Gender-Baby A: Male weight: 8 lb 10.098 oz Status at Discharge Functional status at discharge: independent ambulation Overall status at discharge: patient is back to baseline Mental Status: mental status grossly normal Speech and Movement: speech and movement normal Mood: congruent mood Affect: normal affect Quality:SDOH Health Related Social Needs: No Data to Display Exam Physical Exam Vital signs: Temp Pulse Resp BP Pulse Ox 98.2 F 67 18 115/68 98 04/23/24 21:28 04/23/24 21:28 04/23/24 21:28 04/23/24 21:28 04/23/24 21:28 PFSH All Active Problems (Updated 04/24/24 @ 02:48 by Cynthia Tong MD) Routine follow-up (Acute) Medical History (Updated 04/24/24 @ 02:48 by Cynthia Tong MD) 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 Date GA/Weeks # Preg Succ Route Wgt Sex Labor Lgth Anesthesia Location Prov Complic Unknown 40 No Yes vaginal 7 lb 12 oz Male 6 hours, labor at home, complete on presentation to [facility] other Delivery Date: Last Updated by: Ginger Caruso DO deep sulcus tear, repaired in OR DS: Data Vitals/I&O Vitals and I&O: Vital Signs Temperature 98.2 F 04/23/24 21:28 Temperature Source Oral 04/23/24 21:28 Pulse 67 04/23/24 21:28 Pulse Rhythm Regular 04/23/24 21:28 Respiratory Rate 18 04/23/24 21:28 Respiratory Depth Normal 04/23/24 21:28 Blood Pressure 115/68 04/23/24 21:28 Blood Pressure Mean 83 04/23/24 21:28 Pulse Oximetry 98 04/23/24 21:28 Oxygen Delivery Method Room Air 04/23/24 01:59 Oxygen Flow Rate 0 04/23/24 01:59 Intake & Output 04/23/24 04/23/24 04/24/24 11:59 23:59 11:59 Intake Total 10 Output Total 300 / 600 300 / 600 Balance -290 / -590 -300 / -590 Weight 189 lb Intake: IV Output: Urine 300 / 600 300 / 600 Other: Urine Color Yellow Yellow Data Completed and Pending Labs on day of discharge: Labs from last 24 hours 04/24/24 04/23/24 06:00 02:45 WBC Pending 13.61 H RBC Pending 4.08 Hgb Pending 12.6 Hct Pending 36.6 MCV Pending 90 MCH Pending 30.9 MCHC Pending 34.4 RDW Pending 12.7 Plt Count Pending 248 MPV Pending 10.1 ABO/Rh A Positive Antibody Screen NEGATIVE
[2024-04-24 06:40] LABS: HCT 33.5 % (36.0-46.0); HGB 11.4 g/dL (11.2-15.7); MCH 30.8 pg (27.0-33.0); MCV 91 fL (80-95); MPV 9.9 fL (8.0-11.0); Platelet Count 185 10^3/uL (130-400); RDW-SD 42.4 fL; WBC 10.28 10^3/uL (4.4-10.8)
[2024-04-24 09:39] VITALS: BP 111/64; PULSE 72; RESP 16; TEMP 36.4; O2SAT 100
== END 2024-04-24 11:15 | disposition home or self-care (01) | DRG 807 ==
PROVIDERS: Admitting Provider Obstetrics & Gynecology; Visit Provider Obstetrics & Gynecology
DX: O98.32 Other infections with a predominantly sexual mode of transmission complicating childbirth (principal); Z37.0 Single live birth; Z3A.40 40 weeks gestation of pregnancy; A60.00 Herpesviral infection of urogenital system, unspecified
CPT/HCPCS: 36415; 85027; 86850; 86900; 86901